=== PATIENT | male | born 1950 | race Caucasian/White ===

== ENCOUNTER 2022-04-27 14:19 | Outpatient (CLI) | payer MEDICARE, SELFPAY ==
--- NOTE | ~2022-04-27 | CT_ITS ---
EXAMINATION:CT lung screening DATE: 04/27/2022 14:47 INDICATION: Personal history of tobacco dependence. Smoker who quit 5 years ago with 110 pack year hi story. TECHNIQUE: Computed tomography (CT) of the chest was performed without intravenous contrast. Automate d exposure control and iterative reconstruction technique were employed. The dose-length product (DLP ) was 173.49 mGy-cm. COMPARISON: Chest CT 01/27/2006 FINDINGS: There is mild emphysema. There are groundglass opacities in the lower lobes. No pleural eff usion. No pleural effusion. The heart size is normal. There are coronary artery calcifications. No pe ricardial effusion. There is a small sliding hiatal hernia. There are epidural electrodes in thoracic spine. There is mild chronic anterior wedging of multiple vertebral bodies. There is severe cervical spondylosis and mild thoracic spondylosis. IMPRESSION: 1. Lung-RADS category 2: Benign appearance or behavior. Continue annual screening with noncontrast lo w-dose chest CT in 12 months. Reviewed, dictated and finalized at location A. IMPRESSION: 1. Lung-RADS category 2: Benign appearance or behavior. Continue annual screeni ng with noncontrast low-dose chest CT in 12 months.
== END 2022-04-27 14:20 | disposition home or self-care (01) ==
PROVIDERS: PCP Family Medicine; Visit Provider Family Medicine
DX: Z12.2 Encounter for screening for malignant neoplasm of respiratory organs (principal); Z87.891 Personal history of nicotine dependence
CPT/HCPCS: 71271

== ENCOUNTER 2022-05-04 10:00 | Outpatient (CLI) | payer MEDICARE, SELFPAY ==
[2022-05-04 19:15] LABS: Alanine Aminotransferase 53 U/L (6-50); Albumin Level 4.7 g/dL (3.5-5.1); Alkaline Phosphatase 71 U/L (38-126); Anion Gap 13 mmol/L (8-16); Aspartate Amino Transferase 41 U/L (17-59); Bilirubin,Total 0.8 mg/dL (0.2-1.3); Blood Urea Nitrogen 17 mg/dL (9-20); Calcium 8.9 mg/dL (8.4-10.2); Carbon Dioxide 25 mmol/L (22-30); Chloride 102 mmol/L (98-107); Cholesterol 117 mg/dL (0-200); Estimated Glomerular Filt Rate 50; Glucose 93 mg/dL (65-110); HDL Direct 23 mg/dL; Potassium 3.7 mmol/L (3.4-5.0); Sodium 140 mmol/L (137-145); Triglycerides 163 mg/dL (<150)
[2022-05-04 19:27] LABS: LDL Cholesterol Direct 64 mg/dL
[2022-05-04 19:45] LABS: Prostate Specific Antigen 1.7 ng/mL (< OR = 4.0)
== END 2022-05-04 10:01 | disposition home or self-care (01) ==
PROVIDERS: PCP Family Medicine; Visit Provider Family Medicine
DX: E78.5 Hyperlipidemia, unspecified (principal); Z12.5 Encounter for screening for malignant neoplasm of prostate; Z79.899 Other long term (current) drug therapy; I10 Essential (primary) hypertension
CPT/HCPCS: 36415; 80053; 80061; 84153; G0103

== ENCOUNTER 2022-09-15 15:59 | Emergency (ER) | payer MEDICARE, SELFPAY ==
[2022-09-15 16:18] VITALS: BP 133/84; PULSE 75; RESP 16; TEMP 36.8; O2SAT 98
--- NOTE | 2022-09-15 16:53 | ED.URI ---
HPI - URI/Sore Throat General Chief Complaint: Upper Respiratory Infection Stated Complaint: cov test Time Seen by Provider: 09/15/22 16:40 Source: patient, RN notes reviewed and old records reviewed Mode of arrival: ambulatory Limitations: no limitations History of Present Illness HPI Narrative: 72 year old male who presents to [facility] care with complaints of fevers, chills, body aches, congestion and cough for the past 4 days. States he is feeling better today. His made an appointment for him upstairs but they wouldn't see him and told him to come downstairs to be seen and have COVID test. Patient reports that his last known fever was last night. Patient reports that he has taken DayQuil, NyQuil, Mucinex and Aleve for his symptoms. Patient reports that his is now sick today also. He reports that he has been COVID vaccinated and had Booster and also had Flu shot. MD elicited complaint: fever, cough, rhinorrhea and nasal congestion Onset (ago): day(s) (4) Able to tolerate fluids by mouth: Yes Treatments prior to arrival: cold medicine and other (Aleve) Related Data Home Medications Medication Instructions Recorded Confirmed amlodipine 5 mg tablet 5 mg PO DAILY 02/27/22 09/15/22 cholecalciferol (vitamin D3) 50 50 mcg PO DAILY 02/27/22 09/15/22 mcg (2,000 unit) capsule fluticasone propionate 50 1 spray intranasal DAILY 02/27/22 09/15/22 mcg/actuation nasal spray,suspension (Allergy Relief (fluticasone)) hydrocortisone 2.5 % topical cream 1 applic topical BID PRN Itching 02/27/22 09/15/22 loratadine 10 mg tablet 10 mg PO DAILY 02/27/22 09/15/22 lorazepam 0.5 mg tablet 0.5 mg PO TID PRN Anxiety 02/27/22 09/15/22 losartan 100 mg tablet 100 mg PO DAILY 02/27/22 09/15/22 omeprazole 20 mg capsule,delayed 20 mg PO DAILY 02/27/22 09/15/22 release rosuvastatin 20 mg tablet 20 mg PO DAILY 02/27/22 09/15/22 sertraline 100 mg tablet 100 mg PO DAILY 02/27/22 09/15/22 trazodone 50 mg tablet 25 mg PO QHS PRN Sleep 02/27/22 09/15/22 mecobalamin (vitamin B12) 5,000 5,000 mcg PO .QD 07/04/22 09/15/22 mcg disintegrating tablet Allergies Allergy/AdvReac Type Severity Reaction Status Date / Time No Known Allergies Allergy Verified 09/15/22 16:32 Review of Systems Review of Systems: CONSTITUTIONAL: Reports malaise, chills, sweats, or fever. EYES: Denies visual changes, redness, or discharge. ENT: Reports rhinorrhea, congestion, sinus pain, no otalgia and sore throat. CARDIOVASCULAR: Denies chest pain, palpitations, or edema. RESPIRATORY: Reports cough.? Denies dyspnea. GASTROINTESTINAL: Denies abdominal pain, nausea, vomiting, diarrhea SKIN: Denies rash or itching. MUSCULOSKELETAL: reports myalgia. NEUROLOGIC: Denies headache. All systems reviewed & are unremarkable except as noted in HPI and below PMFSH Past Medical History Medical History (Updated 09/17/22 @ 11:22 by Lisa Raza NP) Anxiety GERD (gastroesophageal reflux disease) Hyperlipidemia Hypertension Surgical History Surgical History H/O discectomy H/O hernia repair S/P insertion of spinal cord stimulator 2019 Social History Social History Smoking status: Former smoker Smokeless tobacco user: chewing tobacco Alcohol intake: current Drinks per week: 2 Alcohol use details: Beer/[place] Substance use: never Substance use type: does not use Lack of Transportation: No Lack of Food: Never True Current Housing: I Have Housing Concerned About Future Housing: No Difficulty Paying Gas/Electric Bills: No Difficulty Paying for Meds: No Currently Unemployed: No Education: Associate Degree Difficulty w/ Childcare or Family Care: No Living arrangements: with family Additional living arrangements comments: Occupation/Education: retired Gender identity (if verbalized by the patien
--- NOTE | 2022-09-15 16:54 | PC.NURSE ---
After speaking with [facility], Pt clarified he came in for PCP appointment, but they would not see him since he had been sick and told him to come get a covid test.
== END 2022-09-15 17:19 | disposition home or self-care (01) ==
PROVIDERS: Emergency Provider Registered Nurse; PCP Family Medicine
DX: U07.1 COVID-19 (principal); E78.5 Hyperlipidemia, unspecified; I10 Essential (primary) hypertension; Z87.891 Personal history of nicotine dependence
CPT/HCPCS: 87426; 99212; C9803; G0463

== ENCOUNTER → 2023-02-15 11:55 | Outpatient (CLI) | payer MEDICARE, SELFPAY ==
--- NOTE | ~2023-02-15 | XR_ITS ---
Lumbosacral Spine: AP, oblique, and lateral views, with neutral, flexion, and extension positioning Clinical History: Pain Findings: The normal lordotic curve is maintained. There is posterior fusion from L5 to S1, bilateral rods and transpedicular screws present. There is mild degenerative disc change throughout the lumbar spine. No acute fracture or subluxation seen. No instability evident on flexion or extension. Neuros timulator device present. The sacroiliac joints are normally outlined. Impression: Posterior fusion from L5 to S1. No fracture or subluxation. No instability. Mild degenerative disc changes. Reviewed, dictated and finalized at location . Impression: Posterior fusion from L5 to S1. No fracture or subluxation. No instability. Mild degenerative disc changes.
== END ==
PROVIDERS: PCP Family Medicine; Visit Provider Family Medicine
DX: M54.50 Low back pain, unspecified (principal); Z98.1 Arthrodesis status
CPT/HCPCS: 72114

== ENCOUNTER 2023-04-09 00:30 | Day surgery (SDC) | payer MEDICARE, SELFPAY ==
[2023-03-28 09:59] VITALS: BMI 30.8
--- NOTE | 2023-04-07 09:24 | PM.HPGS ---
History of Present Illness History of Present Illness Consent: Risks, benefits, and alternatives have been discussed and questions answered. Patient agrees to proceed with procedure. Chief complaint: neoplasm screening Narrative: Dylon Mosley is a 72 year old male referred for colon cancer screening. He has a history of colon polyps. Review of Systems Review of Systems: All systems reviewed & are unremarkable except as noted in HPI and below PMFSH Past Medical History Medical History Anxiety GERD (gastroesophageal reflux disease) Hyperlipidemia Hypertension Surgical History Surgical History H/O discectomy H/O hernia repair S/P insertion of spinal cord stimulator 2019 Social History Social History Smoking status: Former smoker Tobacco type: cigarettes Smokeless tobacco user: chewing tobacco Alcohol intake: current Drinks per week: 2 Alcohol use details: Beer/[place] Substance use: never Substance use type: does not use Lack of Transportation: No Lack of Food: Never True Current Housing: I Have Housing Concerned About Future Housing: No Difficulty Paying Gas/Electric Bills: No Difficulty Paying for Meds: No Currently Unemployed: No Education: Associate Degree Difficulty w/ Childcare or Family Care: No Living arrangements: with family Additional living arrangements comments: Occupation/Education: retired Gender identity (if verbalized by the patient): Male Sexual Orientation (if Verbalized by the Patient): Straight or Heterosexual Spiritual care concerns: No Agree to blood products: Yes Meds Home Medications and Allergies Home Medications Medication Instructions Recorded Confirmed Type losartan 100 mg tablet 100 mg PO DAILY 02/27/22 03/28/23 History rosuvastatin 20 mg tablet 20 mg PO DAILY 02/27/22 03/28/23 History sertraline 100 mg tablet 100 mg PO DAILY 02/27/22 03/28/23 History omeprazole 20 mg capsule,delayed 20 mg PO DAILY #90 caps 01/15/23 03/28/23 Rx release amlodipine 5 mg tablet 5 mg PO DAILY 03/28/23 03/28/23 History icosapent ethyl 1 gram capsule 2 g PO BID 03/28/23 03/28/23 History (Vascepa) Allergies Allergy/AdvReac Type Severity Reaction Status Date / Time No Known Allergies Allergy Verified 04/09/23 08:36 Exam Const: General: alert Orientation/consciousness: patient oriented x3 Resp: Auscultation: clear to auscultation bilaterally Cardio: Rhythm: regular rhythm GI: GI Palp: Yes Soft to palpation and No Tenderness to palpation present (GI) Neuro: General: patient oriented x3 Assessment and Plan Assessment and plan (1) Colon cancer screening: Code(s): Z12.11 - Encounter for screening for malignant neoplasm of colon Status: Acute Assessment and Plan: Colonoscopy with possible biopsy or polypectomy or cautery or injection of substances.
[2023-04-09 08:37] VITALS: BP 137/83; PULSE 70; RESP 18; TEMP 36.1; O2SAT 96
[2023-04-09] MEDS: LACTATED RINGERS 1,000 ML 150 ML IV CONT (08:48)
--- NOTE | 2023-04-09 09:20 | WPDANESEPPF ---
Anes - Initial Pre Proc Eval Procedure: Operation Date: 04/09/23 10:00 Proposed Procedures p Screening Colonoscopy - Jonny Dumont MD Date/Time: 04/09/23 09:20 Surgeon: Jonny Dumont MD Pre Op Diagnosis: neoplasm screening Patient Data Age: 72 Gender: M Height: 1.88 m Weight: 109.3 kg Last Vital Signs Temp 97 F L 04/09/23 08:37 Pulse 70 04/09/23 08:37 Resp 18 04/09/23 08:37 BP 137/83 04/09/23 08:37 Pulse Ox 96 04/09/23 08:37 O2 Del Method Room Air 04/09/23 08:37 Allergies Allergy/AdvReac Type Severity Reaction Status Date / Time No Known Allergies Allergy Verified 04/09/23 08:36 Home Medications Medication Instructions Recorded Confirmed Type losartan 100 mg tablet 100 mg PO DAILY 02/27/22 03/28/23 History rosuvastatin 20 mg tablet 20 mg PO DAILY 02/27/22 03/28/23 History sertraline 100 mg tablet 100 mg PO DAILY 02/27/22 03/28/23 History omeprazole 20 mg capsule,delayed 20 mg PO DAILY #90 caps 01/15/23 03/28/23 Rx release amlodipine 5 mg tablet 5 mg PO DAILY 03/28/23 03/28/23 History icosapent ethyl 1 gram capsule 2 g PO BID 03/28/23 03/28/23 History (Vascepa) Patient hx anesthesia problems: none Family hx anesthesia problems: none Results Review: All pre-operative results and documents have been reviewed as part of the pre-operative evaluation. [facility] Past Medical History Medical History Anxiety GERD (gastroesophageal reflux disease) Hyperlipidemia Hypertension Surgical History Surgical History H/O discectomy H/O hernia repair S/P insertion of spinal cord stimulator 2019 Social History Social History Smoking status: Former smoker Tobacco type: cigarettes Smokeless tobacco user: chewing tobacco Alcohol intake: current Drinks per week: 2 Alcohol use details: Beer/[place] Substance use: never Substance use type: does not use Lack of Transportation: No Lack of Food: Never True Current Housing: I Have Housing Concerned About Future Housing: No Difficulty Paying Gas/Electric Bills: No Difficulty Paying for Meds: No Currently Unemployed: No Education: Associate Degree Difficulty w/ Childcare or Family Care: No Living arrangements: with family Additional living arrangements comments: Occupation/Education: retired Gender identity (if verbalized by the patient): Male Sexual Orientation (if Verbalized by the Patient): Straight or Heterosexual Spiritual care concerns: No Agree to blood products: Yes Anes - Eval Final PreProcedure Day of Procedure 04/09/23 09:20 Patient weight: obese Heart: regular rate and rhythm Lungs: clear to auscultation Airway: Mallampati scale class II Neurological: alert and oriented Last oral intake: >/= 8 hours ASA classification: III Emergent: no Anesthetic plan: proceed Anesthesia type and monitoring: general GIVS and standard monitoring Results Review: All pre-operative results and documents have been reviewed as part of the pre-operative evaluation. Informed Consent: The patient's anesthetic plan and its attendant risks and benefits were discussed with the patient/family/POA. Questions were solicited and answers provided to the satisfaction of the patient/family/POA.
[2023-04-09 09:53] VITALS: BP 112/68; PULSE 58; RESP 21; O2SAT 92
[2023-04-09 10:03] VITALS: BP 112/68; PULSE 60; RESP 20; O2SAT 97
[2023-04-09 10:13] VITALS: BP 109/69; PULSE 55; RESP 24; O2SAT 97
== END 2023-04-09 10:26 | disposition home or self-care (01) ==
PROVIDERS: PCP Family Medicine; Visit Provider Internal Medicine Gastroenterology
PROC: 0DJD8ZZ Inspection of Lower Intestinal Tract, Via Natural or Artificial Opening Endoscopic (ICD-10-PCS; CPT 45378; principal; 2023-04-09 10:00)
DX: Z12.11 Encounter for screening for malignant neoplasm of colon (principal); Z86.010 Personal history of colon polyps; I10 Essential (primary) hypertension; E78.5 Hyperlipidemia, unspecified; K21.9 Gastro-esophageal reflux disease without esophagitis; F41.9 Anxiety disorder, unspecified; F17.220 Nicotine dependence, chewing tobacco, uncomplicated; E66.9 Obesity, unspecified; Z68.30 Body mass index [BMI] 30.0-30.9, adult
CPT/HCPCS: G0105; J2001; J2704; J7120

== ENCOUNTER 2023-04-19 09:33 | Outpatient (CLI) | payer MEDICARE, SELFPAY ==
--- NOTE | ~2023-04-19 | XR_ITS ---
EXAMINATION: XR thoracic spine 3V DATE: 04/19/2023 10:04 INDICATION: Postlaminectomy syndrome, not elsewhere classified. TECHNIQUE: 3 views of thoracic spine on 5 radiographs were obtained. COMPARISON: Chest CT 04/27/2022 FINDINGS: There is 3 degrees levocurvature of thoracic spine. There is mild chronic anterior wedging of multiple vertebral bodies. There is mildly decreased disc height at multiple levels in the mid tho racic spine. There are endplate osteophytes at most levels. There are epidural electrodes with tips a t T8. IMPRESSION: 1. Mild thoracic spondylosis. Reviewed, dictated and finalized at location A.
--- NOTE | ~2023-04-19 | XR_ITS ---
EXAMINATION: XR hip BI 2V w AP pelvis DATE: 04/19/2023 10:04 INDICATION: Bilateral hip pain TECHNIQUE: AP view of the pelvis and two views of each hip were obtained. COMPARISON: None. FINDINGS: Bone alignment is normal. There is no fracture. There is mild to moderate osteoarthritis of the hips. Calcified atherosclerosis is noted. There are changes of anterior and posterior fusion at L5-S1. IMPRESSION: 1. [id number] osteoarthritis of the hips without acute osseous abnormality. Reviewed, dictated and finalized at location L. IMPRESSION: 1. [id number] osteoarthritis of the hips without acute osseous abnormalit y.
== END 2023-04-19 09:34 | disposition home or self-care (01) ==
LOC: ANHIMG 09:36
PROVIDERS: PCP Family Medicine; Visit Provider Anesthesiology Pain Medicine
DX: M46.1 Sacroiliitis, not elsewhere classified (principal); M96.1 Postlaminectomy syndrome, not elsewhere classified; M47.814 Spondylosis without myelopathy or radiculopathy, thoracic region; M16.0 Bilateral primary osteoarthritis of hip
CPT/HCPCS: 72072; 73521

== ENCOUNTER 2023-07-05 10:44 | Outpatient (CLI) | payer MEDICARE, SELFPAY ==
[2023-07-05 19:20] LABS: Alanine Aminotransferase 43 U/L (6-50); Albumin Level 4.4 g/dL (3.5-5.1); Alkaline Phosphatase 92 U/L (38-126); Anion Gap 8 mmol/L (8-16); Aspartate Amino Transferase 47 U/L (17-59); Bilirubin,Total 0.6 mg/dL (0.2-1.3); Blood Urea Nitrogen 14 mg/dL (9-20); Calcium 9.5 mg/dL (8.4-10.2); Carbon Dioxide 31 mmol/L (22-30); Chloride 101 mmol/L (98-107); Cholesterol 168 mg/dL (0-200); Estimated Glomerular Filt Rate 55; Glucose 102 mg/dL (65-110); HDL Direct 26 mg/dL; Potassium 4.3 mmol/L (3.4-5.0); Sodium 140 mmol/L (137-145); Triglycerides 147 mg/dL (<150)
[2023-07-05 19:47] LABS: Prostate Specific Antigen 1.6 ng/mL (< OR = 4.0)
[2023-07-05 21:42] LABS: LDL Cholesterol Direct 103 mg/dL
== END 2023-07-05 10:45 | disposition home or self-care (01) ==
LOC: ANHGOSHLAB 10:45
PROVIDERS: PCP Family Medicine; Visit Provider Family Medicine
DX: Z12.5 Encounter for screening for malignant neoplasm of prostate (principal); E78.5 Hyperlipidemia, unspecified; Z13.228 Encounter for screening for other metabolic disorders; Z13.220 Encounter for screening for lipoid disorders
CPT/HCPCS: 36415; 80053; 80061; 84153; G0103

== ENCOUNTER 2024-01-15 08:34 | Outpatient (CLI) | payer MEDICARE, SELFPAY ==
[2024-01-15 13:09] LABS: Cholesterol 155 mg/dL (0-200); HDL Direct 27 mg/dL; Triglycerides 225 mg/dL (<150)
[2024-01-15 13:19] LABS: LDL Cholesterol Direct 97 mg/dL
== END 2024-01-15 08:35 | disposition home or self-care (01) ==
LOC: ANHGOSHLAB 08:35
PROVIDERS: PCP Family Medicine; Visit Provider Family Medicine
DX: E78.5 Hyperlipidemia, unspecified (principal)
CPT/HCPCS: 36415; 80061

== ENCOUNTER 2024-04-08 13:58 | Outpatient (CLI) | payer MEDICARE, SELFPAY ==
[2024-04-08 19:46] LABS: Alanine Aminotransferase 44 U/L (6-50); Albumin Level 4.8 g/dL (3.5-5.1); Alkaline Phosphatase 68 U/L (38-126); Anion Gap 9 mmol/L (4-12); Aspartate Amino Transferase 65 U/L (17-59); Blood Urea Nitrogen 20 mg/dL (9-20); Calcium 9.8 mg/dL (8.4-10.2); Carbon Dioxide 31 mmol/L (22-30); Chloride 100 mmol/L (98-107); Estimated Glomerular Filt Rate 54; Glucose 113 mg/dL (65-110); Potassium 4.6 mmol/L (3.4-5.0); Sodium 140 mmol/L (137-145)
[2024-04-08 20:14] LABS: Prostate Specific Antigen 4.4 ng/mL (< OR = 4.0)
== END 2024-04-08 13:59 | disposition home or self-care (01) ==
LOC: ANHGOSHLAB 13:59
PROVIDERS: PCP Family Medicine; Visit Provider Family Medicine
DX: Z12.5 Encounter for screening for malignant neoplasm of prostate (principal); Z13.228 Encounter for screening for other metabolic disorders
CPT/HCPCS: 36415; 80053; 84153; G0103

== ENCOUNTER 2024-05-15 14:38 | Outpatient (CLI) | payer MEDICARE, SELFPAY ==
[2024-05-15 19:39] LABS: Prostate Specific Antigen 3.8 ng/mL (< OR = 4.0)
== END 2024-05-15 14:39 | disposition home or self-care (01) ==
LOC: ANHGOSHLAB 14:40
PROVIDERS: PCP Family Medicine; Visit Provider Family Medicine
DX: R97.20 Elevated prostate specific antigen [PSA] (principal)
CPT/HCPCS: 36415; 84153

== ENCOUNTER 2024-09-29 14:22 | Outpatient (CLI) | payer MEDICARE, SELFPAY ==
--- NOTE | ~2024-09-29 | CT_ITS ---
EXAMINATION: CT pelvis wo con DATE: 09/29/2024 14:43 INDICATION: Pelvic and perineal pain TECHNIQUE: Computed tomography (CT) of the pelvis was performed without intravenous contrast. Automat ed exposure control and iterative reconstruction technique were employed.The dose-length product was 629.59 mGy-cm. COMPARISON: None FINDINGS: There are few diverticula along the sigmoid colon without adjacent from trace stranding to suggest di verticulitis. Remainder of the visualized bowels including the appendix are normal. Bladder is normal . Prostatomegaly. Small right-sided and moderate sized left-sided fat-containing inguinal hernias. No pathologically enlarged pelvic or inguinal lymphadenopathy. No free fluid in the pelvis. Mild spondy losis at L4-L5. Instrumented L5-S1 anterior and posterior spinal fusion with interbody bone graft cag e and bilateral vertical luis armando and pedicle screw fixation. IMPRESSION: 1. Small right-sided and moderate sized left sided fat-containing hernias. 2. Prostatomegaly. 2. Instrumented L5-S1 anterior and posterior spinal fusion. Reviewed, dictated and finalized at location B.
== END 2024-09-29 14:23 | disposition home or self-care (01) ==
LOC: MICIMG 14:25
PROVIDERS: PCP Physical Medicine & Rehabilitation Pain Medicine; Visit Provider Physical Medicine & Rehabilitation Pain Medicine
DX: K40.20 Bilateral inguinal hernia, without obstruction or gangrene, not specified as recurrent (principal); N40.0 Benign prostatic hyperplasia without lower urinary tract symptoms; Z98.1 Arthrodesis status
CPT/HCPCS: 72192